=== PATIENT | male | born 1945 ===

== ENCOUNTER 2024-06-01 09:31 | Inpatient (IN) | payer OTHER ==
[~2024-06-01] VITALS: Ht 167.6 cm; Wt 74.8 kg
[2024-06-01 10:50] VITALS: BP 157/68
[2024-06-01] MEDS ORDERED: SYNTHROID50 MCG PO (10:50)
[2024-06-01 10:54] VITALS: BP 143/69
[2024-06-08] MEDS ORDERED: DIBUCAINE 30 GM TUBE ONE (12:48)
[2024-06-08] MEDS ORDERED: LIDOCAINE HCL 1%/EPINEPHRINE 20ML VIAL IJ ONE (12:48)
[2024-06-08] MEDS ORDERED: HEMOSTATIC MATRIX 1 KIT KIT TOP ONE (12:48)
[2024-06-08] MEDS ORDERED: BUPIVACAINE HCL/Mpf 0.5% 10ML VIAL ONE (12:49)
[2024-06-08] MEDS ORDERED: CEFTRIAXONE SODIUM 2,000 MG VIAL IV ONE (14:00)
[2024-06-08] MEDS ORDERED: METRONIDAZOLE/SODIUM CHLORIDE 500 MG/100 ML PIGGYBACK IV ONE (14:00)
[2024-06-08] MEDS ORDERED: RINGERS SOLUTION,LACTATED 1,000 ML IV SCH (14:30)
[2024-06-08] MEDS ORDERED: OxyCODONE HCL 5 MG TABLET (ROXICODONE) PO PRN (14:30)
[2024-06-08] MEDS ORDERED: MORPHINE SULFATE 4 MG/ML CARTRIDGE IV PRN (14:30)
[2024-06-08] MEDS ORDERED: DEXTROSE 50 % IN WATER 0.5 G/ML DISP.SYRIN IV PRN (14:30)
[2024-06-08] MEDS ORDERED: ONDANSETRON HCL 2 MG/ML VIAL IV PRN (14:30)
[2024-06-08 16:12] LABS: HEMATOCRIT 40.9 % (39.0-48.0); HEMOGLOBIN 13.9 g/dL (13-16.00); MEAN CELL VOLUME 99.2 fL (80.0-100.00); MEAN CORPUSCULAR HEMOGLOBIN 33.6 pg (27.00-32.0); MEAN CORPUSCULAR HGB CONC 33.8 g/dl (32.0-36.0); RED BLOOD COUNT 4.13 M/uL (4.00-6.00); RED CELL DISTRIBUTION WIDTH 13.5 % (11.5-14.5)
[2024-06-08 16:15] LABS: PLATELET COUNT 125 K/uL (150-450)
[2024-06-08 16:24] LABS: ALBUMIN 3.7 gm/dL (3.4-5.0); CALCIUM 8.7 mg/dL (8.5-10.1); CREATININE SERUM 1.06 mg/dL (0.70-1.30); GFR 67.74; MAGNESIUM 1.9 mg/dL (1.8-2.4); POTASSIUM 4.58 mEq/L (3.5-5.1)
[2024-06-08] MEDS ORDERED: GABAPENTIN 300 MG CAPSULE PO SCH (17:00)
[2024-06-08] MEDS ORDERED: POLYETHYLENE GLYCOL 3350 17 GM BLIST.PACK PO SCH (17:00)
[2024-06-08 18:40] VITALS: BP 157/68; O2SAT 98
[2024-06-08] MEDS ORDERED: ACETAMINOPHEN 500 MG GEL..CAP PO SCH (20:00)
[2024-06-08] MEDS ORDERED: FAMOTIDINE/PF 20 MG/2 ML VIAL IV PUSH SCH (21:00)
[2024-06-09 00:42] VITALS: BP 134/77; O2SAT 99
[2024-06-09] MEDS ORDERED: LEVOTHYROXINE SODIUM 50 MCG TABLET PO SCH (06:00)
[2024-06-09 07:35] LABS: HEMATOCRIT 41.5 % (39.0-48.0); HEMOGLOBIN 14.3 g/dL (13-16.00); MEAN CELL VOLUME 98.5 fL (80.0-100.00); MEAN CORPUSCULAR HGB CONC 34.5 g/dl (32.0-36.0); PLATELET COUNT 135 K/uL (150-450); RED BLOOD COUNT 4.21 M/uL (4.00-6.00); RED CELL DISTRIBUTION WIDTH 13.5 % (11.5-14.5)
[2024-06-09 08:00] VITALS: BP 119/69; O2SAT 96
[2024-06-09 08:24] LABS: ALBUMIN 3.6 gm/dL (3.4-5.0); CREATININE SERUM 1.12 mg/dL (0.70-1.30); GFR 63.57; MAGNESIUM 2.1 mg/dL (1.8-2.4); PHOSPHOROUS 2.8 mg/dL (2.5-4.9); POTASSIUM 4.38 mEq/L (3.5-5.1)
[2024-06-09] MEDS ORDERED: ENOXAPARIN SODIUM 40 MG/0.4 ML SYRINGE SUBCUTANEO SCH (17:00)
[2024-06-10] MEDS ORDERED: ENOXAPARIN SODIUM 40 MG/0.4 ML SYRINGE SUBCUTANEO SCH (09:00)
== END 2024-06-09 16:07 | disposition home or self-care (01) | DRG 349 ==
LOC: SURH 06-08 09:45 → O/R 06-08 09:50 → SURH 06-08 13:00
PROVIDERS: ADMIT Surgery; ATTEND Surgery
PROC: 0DBP7ZZ Excision of Rectum, Via Natural or Artificial Opening (ICD-10-PCS; principal; 2024-06-08 13:00)
DX: D12.8 Benign neoplasm of rectum (principal)